=== PATIENT | female | born 1985 | race Caucasian/White ===

== ENCOUNTER 2016-09-28 13:39 | Day surgery (SDC) | payer BC ==
[~2016-09-28] VITALS: Ht 162.6 cm; Wt 95.7 kg
[~2016-09-28 13:39] MED LIST: CALC600T11 PO; FOLI-49 PO; PRENAT PO
[2016-09-28 14:52] VITALS: Ht 162.6 cm; Wt 95.7 kg
[2016-09-28 15:37] VITALS: BP 123/72; PULSE 67; RESP 12
[2016-09-28] MEDS ORDERED: FENTAnyl 50 MCG/ML VIAL ONE (15:50)
[2016-09-28] MEDS ORDERED: MIDAZOLAM 1 MG/ML 2 ML INJ ONE ×2 (15:50)
[2016-09-28 16:15] VITALS: BP 119/63; RESP 20
--- NOTE | 2016-09-29 06:16 | GILP ---
DATE OF PROCEDURE: 09/28/2016 PREOPERATIVE DIAGNOSIS: Lower abdominal pain with change in bowel habits. PROCEDURE DONE: Colonoscopy up to cecum. POSTOPERATIVE DIAGNOSIS: Very poor prep, only about 50% to 60% of the colon examined which was norm al, but many areas had large stool, so I could not wash it or examine properly. DESCRIPTION OF PROCEDURE: The patient was put in left lateral decubitus after obtaining informed co nsent and was sedated with 3 mg IV Versed and 50 mcg of fentanyl. Rectal examination was done. I t hen advanced a pediatric Olympus video colonoscope all the way to cecum. Due to poor prep, large ch unks of stool were noted in the right colon. I could not examine some areas well, but most of the a cristal examined, about 50% to 60%, was essentially negative. Upon removal of scope, the patient had no complication. IMPRESSION AND RECOMMENDATIONS: Her abdominal pain may be related to constipation, so I will start her on Linzess 145 mcg per day as they have given previous other medications that do not help. I wi ll see her after 3 to 4 weeks. If she continues to have symptoms, we will work her up further. Dictated By: GRISEL PEACE Conf#: [id number] DID#: [id number] CC: Fran Cook MD;*EndCC*
== END 2016-09-28 16:25 | disposition home or self-care (01) ==
LOC: GIL 13:39
PROVIDERS: ATTEND Internal Medicine
DX: R19.4 Change in bowel habit (principal)
CPT/HCPCS: 45378; 84703; J2250; J3010

== ENCOUNTER 2017-06-25 13:15 | Day surgery (SDC) | END 2017-06-25 15:38 | disposition home or self-care (01) ==

== ENCOUNTER → 2017-10-15 | Outpatient (CLI) | END | disposition home or self-care (01) ==